=== PATIENT | male | born 1970 | race Caucasian/White ===

== ENCOUNTER 2019-10-19 14:06 | Emergency (ER) | payer OTHER ==
[~2019-10-19] VITALS: Ht 180.3 cm; Wt 117.0 kg
--- NOTE | 2019-10-19 14:25 | PHYS DOC ---
Past History Past Medical History: Other Additional Past Medical Histor: SLEEP APNEA Past Surgical History: Other Additional Past Surgical Histo: NOSE SURGERY, HAND SURGERY Alcohol Use: None General Adult EDM: Chief Complaint: ABDOMINAL PAIN HPI: HPI: Patient is a 49-year-old male who presents to the emergency department for evaluation. Patient states for the past 2 weeks he has had some waxing and waning epigastric abdominal pain which seems to be getting worse. He has not had any nausea, vomiting, diarrhea, and his pain is not alleviated or exacerbated by anything, including eating. He has not had any fevers or chills. He has been having regular bowel movements and no urinary symptoms. He denies any chest pain or shortness of breath. He also reports some mild sinus congestion but this is not a new problem for him. Review of Systems: Review of Systems: Constitutional: Denies fever or chills Eyes: Denies change in visual acuity HENT: Denies otalgia or sore throat Respiratory: Denies cough or shortness of breath Cardiovascular: Denies chest pain or edema GI: As per HPI. : Denies dysuria Musculoskeletal: Denies back pain or joint pain Integument: Denies rash Neurologic: Denies headache, focal weakness or sensory changes Endocrine: Denies polyuria or polydipsia Lymphatic: Denies swollen glands Psychiatric: Denies depression or anxiety Heart Score: Risk Factors: Risk Factors: DM, Current or recent (<one month) smoker, HTN, HLP, family history of CAD, obesity. Risk Scores: Score 0 - 3: 2.5% MACE over next 6 weeks - Discharge Home Score 4 - 6: 20.3% MACE over next 6 weeks - Admit for Clinical Observation Score 7 - 10: 72.7% MACE over next 6 weeks - Early Invasive Strategies Current Medications: Current Meds: Current Medications Medications (Trade) Dose Ordered Sig/Alpa Start Time Stop Time Status Last Admin Dose Admin Multi-Ingredient Mouthwash/Gargle (Gi Cocktail) 20 ml 1X ONCE 10/19/19 14:30 10/19/19 14:31 UNV Allergies: Allergies: Allergies Coded Allergies Type Severity Reaction Last Updated Verified No Known Drug Allergies 10/19/19 No Physical Exam: PE: PHYSICAL EXAM: CONSTITUTIONAL: Well developed, well nourished HEAD: normocephalic, atraumatic EENT: PERRL, EOMI. Conjunctivae normal color, sclerae non-icteric; moist mucous membranes. NECK: Supple, non-tender; no meningismus. LUNGS: Lungs CTA, breathing even and unlabored. Normal air movement. HEART: Regular rate and rhythm, no murmur CHEST: No deformity; non-tender ABDOMEN: The abdomen is soft, there is very mild epigastric tenderness to palpation without rebound or guarding, the right upper quadrant is nontender, Lopez sign is absent, the remainder of the abdomen is soft and non-tender, no masses or bruits. EXTREM: Normal ROM; no deformity, no calf tenderness. Normal pulses palpable in all extremities. There is no pedal edema. SKIN: No rash; no diaphoresis NEURO: Alert; normal speech and cognition; CN's grossly intact; strength grossly intact without focal deficit. BACK: No CVA TTP. Current Patient Data: Labs: Laboratory Tests Test 10/19/19 14:35 10/19/19 14:45 Urine Collection Type Unknown Urine Color Yellow Urine Clarity Clear Urine pH 8.0 Urine Specific [place] 1.020 Urine Protein Neg Urine Glucose (UA) Neg mg/dL Urine Ketones (Stick) Neg mg/dL Urine Blood Trace Urine Nitrite Neg Urine Bilirubin Neg Urine Urobilinogen Dipstick 0.2 mg/dL Urine Leukocyte Esterase Neg Urine RBC Occ /HPF Urine WBC 0 /HPF Urine Squamous Epithelial Cells Occ /LPF Urine Bacteria 0 /HPF Urine Mucus Slight /LPF White Blood Count 10.5 x10^3/uL Red Blood Count 5.47 x10^6/uL Hemoglobin 17.1 g/dL Hematocrit 49.3 % Mean Corpuscular Volume 90 fL Mean Corpuscular Hemoglobin 31 pg Mean Corpuscular Hemoglobin Concent 35 g/dL Red Cell Distribution Width 13.6 % Platelet Count 220 x10^3/uL Neutrophils (%) (Auto) 59 % Lymphocytes (%) (Auto) 29 % Monocytes (%) (Auto) 7 % Eosinophils (%) (Auto) 5 % Basophils (%) (Auto) 1 % Neutrophils # (Auto) 6.2 x10^3uL Lymphocytes # (Auto) 3.0 x10^3/uL Monocytes # (Auto) 0.8 x10^3/uL Eosinophils # (Auto) 0.5 x10^3/uL Basophils # (Auto) 0.1 x10^3/uL Sodium Level 140 mmol/L Potassium Level 3.7 mmol/L Chloride Level 105 mmol/L Carbon Dioxide Level 31 mmol/L Anion Gap 4 Blood Urea Nitrogen 14 mg/dL Creatinine 1.1 mg/dL Estimated GFR (Cockcroft-Gault) 71.4 BUN/Creatinine Ratio 13 Glucose Level 115 mg/dL Calcium Level 9.2 mg/dL Total Bilirubin 0.8 mg/dL Aspartate Amino Transf (AST/SGOT) 14 U/L Alanine Aminotransferase (ALT/SGPT) 35 U/L Alkaline Phosphatase 89 U/L Troponin I Quantitative < 0.017 ng/mL Total Protein 7.3 g/dL Albumin 3.9 g/dL Albumin/Globulin Ratio 1.1 Lipase 119 U/L Current Medications Medications (Trade) Dose Ordered Sig/Alpa Route PRN Reason Start Time Stop Time Status Last Admin Dose Admin Multi-Ingredient Mouthwash/Gargle (Gi Cocktail) 20 ml 1X ONCE PO 10/19/19 14:30 10/19/19 14:31 DC 10/19/19 14:33 Vital Signs: Vital Signs Date Time Temp Pulse Resp B/P (MAP) Pulse Ox O2 Delivery O2 Flow Rate FiO2 10/19/19 14:19 98.5 98 18 165/96 (119) 98 Room Air EKG: EKG: [] Normal sinus rhythm at a rate of 76 bpm, left axis deviation, normal intervals. There are no acute ischemic ST/T changes. Radiology/Procedures: Radiology/Procedures: [] Course & Med Decision Making: Course & Med Decision Making Pertinent Lab studies reviewed. (See chart for details) [] 3:20 PM: The patient's condition remained stable, he had relief with a GI cocktail. I discussed test results, the need for close follow-up and return precautions. Dragon Disclaimer: Dragon Disclaimer: This electronic medical record was generated, in whole or in part, using a voice recognition dictation system. Departure Departure: Impression: Primary Impression: Abdominal pain Disposition: 01 HOME/RESIDENCE PRIOR TO ADM Condition: STABLE Referrals: LUIS M MINOR MD Patient Instructions: Abdominal Pain, Gastritis, Adult, Peptic Ulcer Disease Scripts Omeprazole (OMEPRAZOLE) 20 Mg Capsule.dr 1 CAP PO DAILY for -, #30 CAP 0 Refills Prov: MICHAEL HODGES MD 10/19/19 Justification of Admission: Justification of Admission: Justification of Admission Dx: N/A MICHAEL HODGES J MD Oct 19, 2019 14:25
[2019-10-19] MEDS ORDERED: LIDO:MAALOX 1:1 20 ML SINGLE DOSE. PO ONE (14:30)
[2019-10-19 15:02] LABS: BASO # 0.1 x10^3/uL (0.0-0.2); BASO % 1 % (0-3); EOS # 0.5 x10^3/uL (0.0-0.7); EOS % 5 % (0-3); HEMATOCRIT 49.3 % (39.0-53.0); HEMOGLOBIN 17.1 g/dL (13.0-17.5); LYMPH % 29 % (24-48); MEAN CORPUSCULAR HEMOGLOBIN 31 pg (25-35); MEAN CORPUSCULAR HGB CONC 35 g/dL (31-37); MEAN CORPUSCULAR VOLUME 90 fL (79-100); MONO # 0.8 x10^3/uL (0.0-1.1); MONO % 7 % (0-9); NEUT # 6.2 x10^3uL (1.8-7.7); NEUT % 59 % (31-73); PLATELET COUNT 220 x10^3/uL (140-400); RED BLOOD COUNT 5.47 x10^6/uL (4.30-5.70); RED CELL DISTRIBUTION WIDTH 13.6 % (11.5-14.5); WHITE BLOOD COUNT 10.5 x10^3/uL (4.0-11.0)
[2019-10-19 15:08] LABS: CALCIUM 9.2 mg/dL (8.5-10.1); CREATININE 1.1 mg/dL (0.7-1.3); GFR 71.4; POTASSIUM 3.7 mmol/L (3.5-5.1)
[2019-10-19 15:12] LABS: BILIRUBIN,URINE NEG (NEG); CLARITY,URINE CLEAR; COLOR,URINE YELLOW; GLUCOSE,URINE NEG (NEG)
[2019-10-19 15:13] LABS: ALBUMIN 3.9 g/dL (3.4-5.0); ALBUMIN/GLOBULIN RATIO 1.1 (1.0-1.7); TOTAL BILIRUBIN 0.8 mg/dL (0.2-1.0); TOTAL PROTEIN 7.3 g/dL (6.4-8.2)
[2019-10-19 15:13] LABS: BACTERIA,URINE 0 /HPF (0-FEW); NITRITE,URINE NEG (NEG); RBC,URINE OCC /HPF (0-2); SQUAMOUS EPITHELIAL CELL,UR OCC /LPF; UROBILINOGEN,URINE 0.2 mg/dL (0.2 mg/dL); WBC,URINE 0 /HPF (0-4)
[2019-10-19] MEDS ORDERED: OMEP20CA16 PO (15:24)
[2019-10-19 15:29] VITALS: BP 128/85
--- NOTE | 2019-10-19 16:08 | EKG ---
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
== END 2019-10-19 15:30 | disposition home or self-care (01) ==
LOC: ER 14:06
DX: R10.13 Epigastric pain (principal)
CPT/HCPCS: 36415; 80053; 81001; 83690; 84484; 85025; 93005; 99284

== ENCOUNTER 2019-11-08 01:20 | Emergency (ER) | payer OTHER ==
[~2019-11-08] VITALS: Ht 180.3 cm; Wt 121.0 kg
[~2019-11-08 01:20] MED LIST: OMEP20CA16 PO
[2019-11-08 02:50] LABS: BASO # 0.1 x10^3/uL (0.0-0.2); BASO % 1 % (0-3); EOS # 0.8 x10^3/uL (0.0-0.7); EOS % 6 % (0-3); HEMATOCRIT 46.5 % (39.0-53.0); HEMOGLOBIN 16.1 g/dL (13.0-17.5); LYMPH # 3.6 x10^3/uL (1.0-4.8); LYMPH % 29 % (24-48); MEAN CORPUSCULAR HEMOGLOBIN 31 pg (25-35); MEAN CORPUSCULAR HGB CONC 35 g/dL (31-37); MEAN CORPUSCULAR VOLUME 90 fL (79-100); MONO % 8 % (0-9); NEUT # 7.1 x10^3uL (1.8-7.7); NEUT % 57 % (31-73); PLATELET COUNT 207 x10^3/uL (140-400); RED BLOOD COUNT 5.16 x10^6/uL (4.30-5.70); RED CELL DISTRIBUTION WIDTH 13.8 % (11.5-14.5); WHITE BLOOD COUNT 12.6 x10^3/uL (4.0-11.0)
[2019-11-08 02:56] LABS: CLARITY,URINE CLEAR; COLOR,URINE YELLOW
[2019-11-08 02:56] LABS: CALCIUM 9.5 mg/dL (8.5-10.1); CREATININE 1.1 mg/dL (0.7-1.3); GFR 71.4; POTASSIUM 3.6 mmol/L (3.5-5.1)
[2019-11-08 02:57] LABS: BACTERIA,URINE 0 /HPF (0-FEW); BILIRUBIN,URINE NEG (NEG); GLUCOSE,URINE NEG (NEG); NITRITE,URINE NEG (NEG); RBC,URINE 0 /HPF (0-2); SQUAMOUS EPITHELIAL CELL,UR OCC /LPF; UROBILINOGEN,URINE 0.2 mg/dL (0.2 mg/dL); WBC,URINE RARE /HPF (0-4)
[2019-11-08 02:59] LABS: ALBUMIN 3.9 g/dL (3.4-5.0); ALBUMIN/GLOBULIN RATIO 1.2 (1.0-1.7); TOTAL BILIRUBIN 0.8 mg/dL (0.2-1.0); TOTAL PROTEIN 7.2 g/dL (6.4-8.2)
--- NOTE | 2019-11-08 03:03 | PHYS DOC ---
Past History Past Medical History: Other Additional Past Medical Histor: SLEEP APNEA Past Surgical History: Other Additional Past Surgical Histo: NOSE SURGERY, HAND SURGERY Alcohol Use: None General Adult EDM: Chief Complaint: DIZZY/LIGHT HEADED HPI: HPI: 49-year-old male presents with dizziness and lightheadedness. The patient was driving home from work when he started to feel dizzy. The dizziness became strong enough that he needed to pull off of the road. He was near the hospital so he decided to come in to be evaluated. By the time he came inside, the s ymptoms were resolving. He has had these symptoms intermittently lately. He has been having more sinus congestion over the last couple weeks and he is noticed the symptoms seem to correlate with that. He was placed on an allergy medication but he does not know what it is called. He also takes proton pump inhibitor for GERD. He denies fever chills. Review of Systems: Review of Systems: Constitutional: Denies fever or chills Eyes: Denies change in visual acuity HENT: Denies nasal congestion or sore throat Respiratory: Denies cough or shortness of breath Cardiovascular: Denies chest pain or edema GI: Denies abdominal pain, nausea, vomiting, bloody stools or diarrhea : Denies dysuria Musculoskeletal: Denies back pain or joint pain Integument: Denies rash Neurologic: Dizziness. Denies headache, focal weakness or sensory changes Endocrine: Denies polyuria or polydipsia Lymphatic: Denies swollen glands Psychiatric: Denies depression or anxiety Heart Score: Risk Factors: Risk Factors: DM, Current or recent (<one month) smoker, HTN, HLP, family history of CAD, obesity. Risk Scores: Score 0 - 3: 2.5% MACE over next 6 weeks - Discharge Home Score 4 - 6: 20.3% MACE over next 6 weeks - Admit for Clinical Observation Score 7 - 10: 72.7% MACE over next 6 weeks - Early Invasive Strategies Allergies: Allergies: Allergies Coded Allergies Type Severity Reaction Last Updated Verified No Known Drug Allergies 10/19/19 No Physical Exam: PE: Constitutional: Well developed, well nourished, no acute distress, non-toxic appearance. [] HENT: Normocephalic, atraumatic, bilateral external ears normal, oropharynx moist, no oral exudates, nose normal. [] Eyes: PERRLA, EOMI, conjunctiva normal, no discharge. [] Neck: Normal range of motion, no tenderness, supple, no stridor. [] Cardiovascular: Heart rate regular rhythm, no murmur [] Lungs & Thorax: Bilateral breath sounds clear to auscultation [] Abdomen: Bowel sounds normal, soft, no tenderness, no masses, no pulsatile masses. [] Skin: Warm, dry, no erythema, no rash. [] Back: No tenderness, no CVA tenderness. [] Extremities: No tenderness, no cyanosis, no clubbing, ROM intact, no edema. [] Neurologic: Alert and oriented X 3, normal motor function, normal sensory function, no focal deficits noted. [] Psychologic: Affect normal, judgement normal, mood normal. [] EKG: EKG: [] Radiology/Procedures: Radiology/Procedures: [] Course & Med Decision Making: Course & Med Decision Making Pertinent Labs and Imaging studies reviewed. (See chart for details) The patient's labs are unremarkable. I discussed with him trying an antihis tamine to help with his congestion which I think is exacerbating his vertigo symptoms. He will follow-up with his family physician as needed. He is stable for discharge at this time. [] Dragon Disclaimer: Dragon Disclaimer: This electronic medical record was generated, in whole or in part, using a voice recognition dictation system. Departure Departure: Impression: Primary Impression: Positional vertigo of left ear Disposition: HOME/RESIDENCE PRIOR TO ADM Condition: STABLE Referrals: PCP,NO (PCP) Patient Instructions: Vertigo, [id number] Justification of Admission: Justification of Admission: Justification of Admission Dx: N/A MARISELA GONZALEZ DO Nov 08, 2019 03:03
[2019-11-08 03:30] VITALS: BP 133/88
--- NOTE | 2019-11-08 06:23 | EKG ---
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
== END 2019-11-08 03:30 | disposition home or self-care (01) ==
LOC: ER 01:20
DX: H81.12 Benign paroxysmal vertigo, left ear (principal)
CPT/HCPCS: 36415; 80053; 81001; 85025; 93005; 99284

== ENCOUNTER 2019-11-29 19:15 | Emergency (ER) | payer OTHER ==
[~2019-11-29] VITALS: Ht 177.8 cm; Wt 119.0 kg
[2019-11-29 19:34] VITALS: BP 147/100
[2019-11-29] MEDS ORDERED: CETI10TA74 PO (20:31)
--- NOTE | 2019-11-29 20:32 | PHYS DOC ---
Past History Past Medical History: Other Additional Past Medical Histor: vertigo; sleep apnea Past Surgical History: Other Additional Past Surgical Histo: right hand repair; nasal repair Alcohol Use: Rarely Adult General Chief Complaint Chief Complaint: HEADACHE HPI HPI Patient is a 49-year-old male who presents for headache. He does not have a headache at this present time. Patient reports having history of seasonal allergies and takes Sudafed and Ronna daily, reports being out of both medications for the past 1 month. Coincidentally, patient's dull, tension-like headaches which are intermittent and waxing and waning have been increasing in frequency for the past 1 month. He reports going outside makes them worse. Patient also reports addition of cats into his household which might be potential allergens. Patient reports having PCP in outpatient setting, has not discussed this with them yet. Given ongoing headaches, patient reported to our ER for formal evaluation Review of Systems Review of Systems Positive for classic tension-like headache, paracervical muscle tenderness Denies fever, vision changes, focal collection of headache behind 1 eye, worst headache of his life Fourteen body systems of review of systems have been reviewed. See HPI for pertinent positives and negative responses, other bush all other systems are negative, non-pertinent or non-contributory Allergies Allergies Allergies Coded Allergies Type Severity Reaction Last Updated Verified No Known Drug Allergies 10/19/19 No Physical Exam Physical Exam Constitutional: Well developed, well nourished, no acute distress, non-toxic appearance. HENT: Normocephalic, atraumatic, bilateral external ears normal, left ear shows mild scarring on left TM, moderate fluid collection behind right TM, oropharynx moist, no oral exudates, postnasal drip present, external nose normal. Eyes: PERRLA, EOMI, no discharge. Mild injection Neck: Normal range of motion, mild tenderness to bilateral paracervical muscles, supple, no stridor. Cardiovascular: Heart rate regular, sinus rhythm, no murmurs rubs or gallops Lungs & Thorax: Bilateral breath sounds clear to auscultation Abdomen: Bowel sounds normal, soft, no tenderness, no masses, no pulsatile masses. Nonsurgical abdomen, no peritoneal signs Skin: Warm, dry, no erythema, no rash. Back: No tenderness, no CVA tenderness. Extremities: No tenderness, no cyanosis, no clubbing, ROM intact, no edema. Neurologic: Alert and oriented X 3, grossly normal motor & sensory function, no focal deficits noted. Cranial nerves II through XII intact Psychologic: Affect normal, judgement normal, mood normal. Current Patient Data Vital Signs Vital Signs Date Time Temp Pulse Resp B/P (MAP) Pulse Ox O2 Delivery O2 Flow Rate FiO2 11/29/19 19:34 97.9 88 18 147/100 (116) 97 Room Air EKG EKG [] Radiology/Procedures Radiology/Procedures [] Course & Med Decision Making Course & Med Decision Making Patient seen and evaluated on ER arrival by myself Slightly hypertensive otherwise vitals stable Comprehensive history and physical exam obtained, no further laboratory or imaging work-up indicated at this time Discussed patient's headache most likely due to allergies versus tension headache from type paracervical muscles versus elevated blood pressure Discussed other possible less likely diagnoses such as subarachnoid hemorrhage, cluster headaches etc. ED course reviewed. Patient asymptomatic throughout. Discussed role of treating allergies with new prescription for Zyrtec and close PCP follow-up Discussed role of discussing this matter with PCP for consideration for PT/OMM for patient's tight cervical muscles and need to review patient's BP in outpatient setting to determine if he has hypertension and needs to be medically treated for it or not In all, patient agreeable to plan as stated Strict return precautions discussed with good understanding, all questions and concerns addressed prior to ER departure Shane Disclaimer Shane Disclaimer This electronic medical record was generated, in whole or in part, using a voice recognition dictation system. Departure Departure: Impression: Primary Impression: Headache Additional Impressions: Allergies Cervical (neck) region somatic dysfunction Disposition: HOME/RESIDENCE PRIOR TO ADM Condition: STABLE Referrals: ONIEL LILLY MD (PCP) Patient Instructions: Headache and Allergies Scripts Cetirizine Hcl (ZYRTEC) 10 Mg Tablet 1 TAB PO DAILY for Allergies, #30 TAB 2 Refills Prov: SASKIA OLIVAS DO 11/29/19 Justification of Admission: Justification of Admission: Justification of Admission Dx: N/A Problem Qualifiers SASKIA OLIVAS DO Nov 29, 2019 20:32
== END 2019-11-29 20:40 | disposition home or self-care (01) ==
LOC: ER 19:15
DX: R51 Headache (principal); M99.01 Segmental and somatic dysfunction of cervical region
CPT/HCPCS: 99282; 99283

== ENCOUNTER 2019-12-07 23:13 | Emergency (ER) | payer OTHER ==
[~2019-12-07] VITALS: Ht 177.8 cm; Wt 115.0 kg
[~2019-12-07 23:13] MED LIST changes: +CETI10TA24 PO
[2019-12-07] MEDS ORDERED: MECL-75 PO (23:53)
[2019-12-07] MEDS ORDERED: PRED20TA PO (23:53)
--- NOTE | 2019-12-07 23:53 | PHYS DOC ---
Past History Past Medical History: GERD, Other Additional Past Medical Histor: sleep apnea Past Surgical History: Other Additional Past Surgical Histo: hand, nostril Alcohol Use: None General Adult EDM: Chief Complaint: DIZZY/LIGHT HEADED HPI: HPI: Patient is a [age] year old [sex] who presents with [] Review of Systems: Review of Systems: Constitutional: Denies fever or chills Eyes: Denies change in visual acuity HENT: Denies nasal congestion or sore throat Respiratory: Denies cough or shortness of breath Cardiovascular: Denies chest pain or edema GI: Denies abdominal pain, nausea, vomiting, bloody stools or diarrhea : Denies dysuria Musculoskeletal: Denies back pain or joint pain Integument: Denies rash Neurologic: Denies headache, focal weakness or sensory changes Endocrine: Denies polyuria or polydipsia Lymphatic: Denies swollen glands Psychiatric: Denies depression or anxiety Heart Score: Risk Factors: Risk Factors: DM, Current or recent (<one month) smoker, HTN, HLP, family history of CAD, obesity. Risk Scores: Score 0 - 3: 2.5% MACE over next 6 weeks - Discharge Home Score 4 - 6: 20.3% MACE over next 6 weeks - Admit for Clinical Observation Score 7 - 10: 72.7% MACE over next 6 weeks - Early Invasive Strategies Allergies: Allergies: Allergies Coded Allergies Type Severity Reaction Last Updated Verified No Known Drug Allergies 10/19/19 No Physical Exam: PE: Constitutional: Well developed, well nourished, no acute distress, non-toxic appearance. [] HENT: Normocephalic, atraumatic, bilateral external ears normal, oropharynx moist, no oral exudates, nose normal. [] Eyes: PERRLA, EOMI, conjunctiva normal, no discharge. [] Neck: Normal range of motion, no tenderness, supple, no stridor. [] Cardiovascular:Heart rate regular rhythm, no murmur [] Lungs & Thorax: Bilateral breath sounds clear to auscultation [] Abdomen: Bowel sounds normal, soft, no tenderness, no masses, no pulsatile masses. [] Skin: Warm, dry, no erythema, no rash. [] Back: No tenderness, no CVA tenderness. [] Extremities: No tenderness, no cyanosis, no clubbing, ROM intact, no edema. [] Neurologic: Alert and oriented X 3, normal motor function, normal sensory function, no focal deficits noted. [] Psychologic: Affect normal, judgement normal, mood normal. [] Current Patient Data: Vital Signs: Vital Signs Date Time Temp Pulse Resp B/P (MAP) Pulse Ox O2 Delivery O2 Flow Rate FiO2 12/07/19 23:15 98.3 85 20 148/88 (108) 98 Room Air EKG: EKG: [] Radiology/Procedures: Radiology/Procedures: [] Course & Med Decision Making: Course & Med Decision Making Pertinent Labs and Imaging studies reviewed. (See chart for details) [] Dragon Disclaimer: [employer] Disclaimer: This electronic medical record was generated, in whole or in part, using a voice recognition dictation system. Departure Departure: Impression: Primary Impression: Dizziness Disposition: 01 HOME/RESIDENCE PRIOR TO ADM Condition: STABLE Referrals: ONIEL LILLY MD (PCP) Patient Instructions: Dizziness, [id number], Vertigo, [id number] Additional Instructions: Please call Karina Pizano MD (ENT) for further evaluation and treatment. Address: [address] [place] [address] [address], [place] [address] Scripts Prednisone (PREDNISONE) 20 Mg Tablet 2 TAB PO DAILY for Sinus pressure, #8 TAB Start this prescription tomorrow, Wednesday12/08/19 Prov: LUIS M QUEVEDO DO 12/07/19 Meclizine Hcl (MECLIZINE HCL) 25 Mg Tablet 1 TAB PO PRN TID PRN for DIZZINESS, #30 TAB Prov: LUIS M QUEVEDO DO 12/07/19 Justification of Admission: Justification of Admission: Justification of Admission Dx: N/A LUIS M QUEVEDO DO Dec 07, 2019 23:53
[2019-12-08] MEDS ORDERED: DEXAMETHASONE 4 MG TABLET PO ONE
[2019-12-08] MEDS ORDERED: MECLIZINE 12.5 MG TABLET. PO ONE
[2019-12-08 00:23] VITALS: BP 156/89
== END 2019-12-08 00:30 | disposition home or self-care (01) ==
LOC: ER 23:13
DX: R42 Dizziness and giddiness (principal); R51 Headache; K21.9 Gastro-esophageal reflux disease without esophagitis; G47.30 Sleep apnea, unspecified
CPT/HCPCS: 99283; J8540; J8597

== ENCOUNTER 2019-12-11 22:40 | Emergency (ER) | payer OTHER ==
[~2019-12-11] VITALS: Ht 177.8 cm; Wt 117.8 kg
[2019-12-11 22:40] VITALS: BP 153/85
[~2019-12-11 22:40] MED LIST changes: +MECL-75 PO; +PRED20TA PO
--- NOTE | 2019-12-11 22:49 | PHYS DOC ---
Past History Past Medical History: GERD, Other Additional Past Medical Histor: sleep apnea Past Surgical History: Other Additional Past Surgical Histo: hand, nostril Alcohol Use: None Adult General Chief Complaint Chief Complaint: EARACHE/EAR PAIN HPI HPI Patient has been seen numerous times at our facility recently for allergic type symptoms. He has been treated with guideline directed medical therapy consisting of antihistamines, intranasal corticosteroids, p.o. steroids, and meclizine. Patient reports recently seeing his PCP and just finished 1 week course of unknown antibiotics, patient denies any improvement in symptoms after this. Patient has remained afebrile but reports ongoing fullness in bilateral ears with left ear more bothersome than his right. Patient is pending ENT consultation in outpatient setting in 72 hours but reports ongoing fullness is bothering him prompting him to seek evaluation at our ER today Review of Systems Review of Systems Fourteen body systems of review of systems have been reviewed. See HPI for pertinent positives and negative responses, other bush all other systems are negative, non-pertinent or non-contributory Allergies Allergies Allergies Coded Allergies Type Severity Reaction Last Updated Verified No Known Drug Allergies 10/19/19 No Physical Exam Physical Exam Constitutional: Well developed, well nourished, no acute distress, non-toxic appearance. HENT: Normocephalic, atraumatic, bilateral external ears normal, patient has minimal fluid behind left tympanic membrane with scarring noted on left tympanic membrane without any signs of acute infection or other concerning abnormalities such as perforation or masses or exudates, oropharynx moist, no oral exudates, internal and external nose normal. No paranasal sinus tenderness Eyes: PERRLA, EOMI, conjunctiva normal, no discharge. Neck: Normal range of motion, no tenderness, supple, no stridor. Cardiovascular: Heart rate regular, sinus rhythm, no murmurs rubs or gallops Lungs & Thorax: Bilateral breath sounds clear to auscultation Abdomen: Bowel sounds normal, soft, no tenderness, no masses, no pulsatile masses. Nonsurgical abdomen, no peritoneal signs Skin: Warm, dry, no erythema, no rash. Back: No tenderness, no CVA tenderness. Extremities: No tenderness, no cyanosis, no clubbing, ROM intact, no edema. Neurologic: Alert and oriented X 3, grossly normal motor & sensory function, no focal deficits noted. Psychologic: Affect normal, judgement normal, mood normal. Current Patient Data Vital Signs Vital Signs Date Time Temp Pulse Resp B/P (MAP) Pulse Ox O2 Delivery O2 Flow Rate FiO2 12/11/19 22:40 97.9 78 18 153/85 (107) 98 Room Air EKG EKG [] Radiology/Procedures Radiology/Procedures PROCEDURE: CT MAXILLOFACIAL W/CONTRAST Study: CT maxillofacial with contrast INDICATION: Left ear pain. COMPARISON: None. TECHNIQUE: Axial CT imaging of the maxillofacial structures performed after the intravenous administration of 70 cc Omnipaque 300. Coronal and sagittal reformats were obtained. One or more of the following individualized dose reduction techniques were utilized for this examination: 1. Automated exposure control 2. Adjustment of the mA and/or kV according to patient size 3. Use of iterative reconstruction technique. FINDINGS: Bones: No mastoid or middle ear opacification on either side. The nasal bone complex is slightly flattened anteriorly but there are no findings of acuity. Collectively the facial bones are intact. No advanced odontogenic disease. Mild maxillary sinus mucosal thickening. Nearly opacified right aspect of the frontal sinus. Partially imaged degenerative changes at C4-C5. What appears to be moderate central canal stenosis at this level. Suspected mild to moderate central canal stenosis at C3-C4. Soft tissues: No fluid or debris within either external auditory canal. No apparent soft tissue inflammatory changes appreciated adjacent to the left ear. The parotid glands are unremarkable. The deep spaces of the neck are unremarkable. No apparent intracranial abnormality. Unremarkable orbital soft tissues. IMPRESSION: 1. No CT manifestations of otomastoiditis or otitis externa. 2. Nearly opacified right aspect of the frontal sinus. Mild maxillary sinus mucosal thickening. No layering fluid to suggest acute sinusitis. 3. Partially evaluated degenerative changes at C4-C5 more so than C3-C4. There appears to be moderate central canal stenosis at C4-C5 and mild/moderate at C3-C4. Electronically signed by: LARA MUÑOZ MD (12/12/2019 2:06 AM) [id number] Course & Med Decision Making Course & Med Decision Making Well-appearing ambulatory afebrile patient seen on arrival ABCs unremarkable Comprehensive history and physical exam reviewed. Offered patient CT maxillofacial to better characterize patient's symptomology This was obtained, grossly negative Discussed importance of adhering to medical care, discussed need for ongoing supportive care and to ensure he is seen by ENT in outpatient setting in 48 hours time Strict return precautions discussed at length with good understanding by patient, all questions and concerns addressed prior to ER departure Shane Disclaimer Shane Disclaimer This electronic medical record was generated, in whole or in part, using a voice recognition dictation system. Departure Departure: Impression: Primary Impression: Ear pressure Additional Impression: Environmental allergies Disposition: HOME/RESIDENCE PRIOR TO ADM Condition: STABLE Referrals: ONIEL LILLY MD (PCP) Additional Instructions: As discussed prior to ER departure, please keep your follow-up with ENT physician in 1 days time ER work-up today and review from previous recent ER visits showed no acute and/or emergent pathology You are on the correct therapy based on our comprehensive history, physical exam findings, and further diagnostic work-up Please continue to take all medications as prescribed and follow-up with specialist for further evaluation and medical intervention Strict return precautions were discussed with you prior to discharge, please call PCP, ENT physician, or re-present to ER if any of these arise and concerns you It was a pleasure to take care of you today and I wish you a speedy recovery! Justification of Admission: Justification of Admission: Justification of Admission Dx: N/A Problem Qualifiers SASKIA OLIVAS DO Dec 11, 2019 22:49
[2019-12-12] MEDS ORDERED: IOHEXOL 300 MG/ML 75 ML VIAL. IV ONE (00:15)
[2019-12-12] MEDS ORDERED: CONTRAST GIVEN. MC PRN (00:30)
--- NOTE | 2019-12-12 02:09 | RAD ---
Study: CT maxillofacial with contrast INDICATION: Left ear pain. COMPARISON: None. TECHNIQUE: Axial CT imaging of the maxillofacial structures performed after the intravenous administration of 70 cc Omnipaque 300. Coronal and sagittal reformats were obtained. One or more of the following individualized dose reduction techniques were utilized for this examination: 1. Automated exposure control 2. Adjustment of the mA and/or kV according to patient size 3. Use of iterative reconstruction technique. FINDINGS: Bones: No mastoid or middle ear opacification on either side. The nasal bone complex is slightly flattened anteriorly but there are no findings of acuity. Collectively the facial bones are intact. No advanced odontogenic disease. Mild maxillary sinus mucosal thickening. Nearly opacified right aspect of the frontal sinus. Partially imaged degenerative changes at C4-C5. What appears to be moderate central canal stenosis at this level. Suspected mild to moderate central canal stenosis at C3-C4. Soft tissues: No fluid or debris within either external auditory canal. No apparent soft tissue inflammatory changes appreciated adjacent to the left ear. The parotid glands are unremarkable. The deep spaces of the neck are unremarkable. No apparent intracranial abnormality. Unremarkable orbital soft tissues. IMPRESSION: 1. No CT manifestations of otomastoiditis or otitis externa. 2. Nearly opacified right aspect of the frontal sinus. Mild maxillary sinus mucosal thickening. No layering fluid to suggest acute sinusitis. 3. Partially evaluated degenerative changes at C4-C5 more so than C3-C4. There appears to be moderate central canal stenosis at C4-C5 and mild/moderate at C3-C4. Electronically signed by: LARA MUÑOZ MD (12/12/2019 2:06 AM) [id number]
== END 2019-12-12 02:20 | disposition home or self-care (01) ==
LOC: ER 22:40
DX: H57.89 Other specified disorders of eye and adnexa (principal); J30.2 Other seasonal allergic rhinitis; K21.9 Gastro-esophageal reflux disease without esophagitis; G47.30 Sleep apnea, unspecified
CPT/HCPCS: 70487; 99285; Q9967

== ENCOUNTER → 2020-03-01 | Outpatient (CLI) | payer OTHER ==
[~2020-03-01] MED LIST changes: -CETI10TA24 PO; +CETI10TA74 PO
== END ==
LOC: LAB 15:00
PROVIDERS: ATTEND Nurse Anesthetist, Certified Registered
DX: Z01.818 Encounter for other preprocedural examination (principal); K21.9 Gastro-esophageal reflux disease without esophagitis; Z20.828 Contact with and (suspected) exposure to other viral communicable diseases
CPT/HCPCS: U0003

== ENCOUNTER → 2020-03-05 | Day surgery (SDC) | payer OTHER ==
[~2020-03-05] MED LIST changes: +IPRATRPIUM/ALBUTEROL 0.5/2.5MG 3 ML NEBU. NEB PRN; +IV RINGERS SOLUTION,LACTATED 1,000 ML IV SCH; +LIDOCAINE 2% PF 5 ML VIAL. ONE; +MIDAZOLAM HCL PF 2 MG/2 ML VIAL. IV ONE; +ONDANSETRON PF 4 MG/2 ML VIAL. IV PRN; +PROPOFOL 10,000 MCG/ML (20ML) VIAL IV ONE
[2020-03-05 10:39] VITALS: BP 125/89
--- NOTE | 2020-03-07 17:07 | PATHOLOGY ---
[facility] Accession Number: [id number] . 01 Material submitted: . PART A: stomach - GASTRIC BIOPSY PART B: esophagus - DISTAL ESOPHAGUS. Modifiers: distal PART C: esophagus - PROXIMAL ESOPHAGUS. Modifiers: proximal . 02 Diagnosis: A. Gastric biopsies: - Chronic gastritis, mild. . B. Esophageal biopsies, distal esophagus: - Eosinophilic esophagitis. . C. Esophageal biopsies, proximal esophagus: - Eosinophilic esophagitis. LBQ 03/07/2020 1234 Local . 02 Comment: Sections of the gastric biopsy reveal segments of gastric body and antral/body transition mucosa showing congestion and mild chronic inflammation. A properly controlled immunoperoxidase stain for Helicobacter is negative for Helicobacter organisms. . Sections of the distal esophageal and proximal esophageal biopsies appear similar and reveal segments of hyperplastic squamous esophageal mucosa showing increased intraepithelial eosinophils. Areas showing greater than 20 intraepithelial eosinophils per high power field are readily demonstrated. The findings are supportive of the diagnosis of eosinophilic esophagitis. (JPM/db; 03/07/2020) . Special stain performed: Immunoperoxidase stain for Helicobacter on A1 . 02 Electronically signed: . Moshe Breaux MD, Pathologist NPI- [id number] . 01 Gross description: . A. The specimen is received in formalin, labeled "Gene Genao, gastric biopsy". Received are two segments of pale velasco soft tissue ranging in size from 0.3 to 0.5 cm in maximum dimensions. The specimen is submitted entirely in cassette A1. . B. The specimen is received in formalin, labeled "Gene Genao, distal esophagus". Received are three segments of pale velasco soft tissue ranging in size from 0.1 to 0.4 cm in maximum dimensions. The specimen is submitted entirely in cassette B1. . C. The specimen is received in formalin, labeled "Gene Genao, proximal esophagus". Received are two segments of pale velasco soft tissue ranging in size from 0.4 to 0.5 cm in maximum dimensions. The specimen is submitted entirely in cassette C1. (CAA; 03/06/2020) QAC/QAC 03/06/2020 1417 Local . 02 Pathologist provided ICD-10: K29.50, K20.0 . 02 CPT . 758506, [id number], [id number], [id number] Specimen Comment: A courtesy copy of this report has been sent to [phone], [phone] Specimen Comment: [id number] Specimen Comment: Report sent to / DR LILLY Performed at: 01 [facility] [address], [place] [id number] MD Shawn Sorto MD Phone: [phone] Performed at: 02 [facility] [address] [place], [place] [id number] MD Moshe Breaux MD Phone: [phone]
== END | disposition home or self-care (01) ==
LOC: SURG 08:18
PROVIDERS: ATTEND Emergency Medicine
DX: K21.00 Gastro-esophageal reflux disease with esophagitis, without bleeding (principal); K29.50 Unspecified chronic gastritis without bleeding; K22.8 Other specified diseases of esophagus; G47.30 Sleep apnea, unspecified; Z79.899 Other long term (current) drug therapy; Z98.890 Other specified postprocedural states
CPT/HCPCS: 43239; 88305; 88342; J2001; J2704; J7120

== ENCOUNTER 2020-06-01 18:20 | Emergency (ER) | payer OTHER ==
[~2020-06-01] VITALS: Ht 177.8 cm; Wt 119.2 kg
[2020-06-01 18:20] VITALS: BP 158/88
[~2020-06-01 18:20] MED LIST changes: -IPRATRPIUM/ALBUTEROL 0.5/2.5MG 3 ML NEBU. NEB PRN; -IV RINGERS SOLUTION,LACTATED 1,000 ML IV SCH; -LIDOCAINE 2% PF 5 ML VIAL. ONE; -MIDAZOLAM HCL PF 2 MG/2 ML VIAL. IV ONE; -ONDANSETRON PF 4 MG/2 ML VIAL. IV PRN; -PROPOFOL 10,000 MCG/ML (20ML) VIAL IV ONE
--- NOTE | 2020-06-01 18:23 | PHYS DOC ---
Past History Past Medical History: GERD, Other Additional Past Medical Histor: sleep apnea Past Surgical History: Other Additional Past Surgical Histo: hand, nostril Alcohol Use: None General Adult HPI: HPI: ".. My had a confirmed diagnosis of Covid on 05/18,,, she wanted me to come in and get checked because I have had fever, nonproductive cough, chills, aches and pains, and generalized malaise the last couple days...." Patient is a 50 year old male who presents with above hx and complaints fever, cough, chills, myalgia, arthralgia, malise. Patient requests to be checked for Covid and flu symptoms. Patient declined labs, chest x-ray, breathing treatments, or antibiotics at this time. Patient states he will follow up lab work if his symptoms becomes worse with primary care Dr. Lilly. No history recent travel. Works at [employer]. No history immunosuppression. Does not smoke. Normally healthy. Does not get flu vaccinations. Patient does not take any meds at home. Does have a history of sleep apnea which he treats with BiPAP/CPAP. Patient states he only came because his made him. Patient's previous Covid testing in 03/01/20 were negative. Review of Systems: Review of Systems: Constitutional: Complains of fever or chills Eyes: Denies change in visual acuity HENT: Complains of nasal congestion and sore throat Respiratory: Complains of a nonproductive cough. Denies shortness of breath Cardiovascular: Denies chest pain or edema GI: Denies abdominal pain, nausea, vomiting, bloody stools or diarrhea : Denies dysuria Musculoskeletal: Complains of generalized malaise, arthralgia, myalgia Integument: Denies rash Neurologic: Denies headache, focal weakness or sensory changes Endocrine: Denies polyuria or polydipsia Lymphatic: Denies swollen glands Psychiatric: Denies depression or anxiety Family History: Family History: See nursing for home meds Current Medications: Current Meds: See nursing for home meds Allergies: Allergies: Allergies Coded Allergies Type Severity Reaction Last Updated Verified No Known Drug Allergies 10/19/19 No Physical Exam: PE: Constitutional: Well developed, well nourished, no acute distress, non-toxic appearance. [] HENT: Normocephalic, atraumatic, bilateral external ears normal, oropharynx moist, mild injection of pharynx, no oral exudates, nose swollen turbinates and clear rhinorrhea Eyes: PERRLA, EOMI, conjunctiva normal, no discharge. [] Neck: Normal range of motion, no tenderness, supple, no stridor. More than 17 inches circumference. Cardiovascular:Heart rate regular rhythm, no murmur [] Lungs & Thorax: Bilateral breath sounds equal apex with few scattered wheezes on auscultation [] Abdomen: Bowel sounds normal, soft, no tenderness, no masses, no pulsatile masses. [] Skin: Warm, dry, no erythema, no rash. [] Back: No tenderness, no CVA tenderness. [] Extremities: No tenderness, no cyanosis, no clubbing, ROM intact, no edema. No cording appreciated Neurologic: Alert and oriented X 3, normal motor function, normal sensory function, no focal deficits noted. [] Psychologic: Affect anxious, judgement normal, mood normal. [] EKG: EKG: Patient declines EKG [] Radiology/Procedures: Radiology/Procedures: Patient declines chest x-ray [] Heart Score: Risk Factors: Risk Factors: DM, Current or recent (<one month) smoker, HTN, HLP, family history of CAD, obesity. Risk Scores: Score 0 - 3: 2.5% MACE over next 6 weeks - Discharge Home Score 4 - 6: 20.3% MACE over next 6 weeks - Admit for Clinical Observation Score 7 - 10: 72.7% MACE over next 6 weeks - Early Invasive Strategies Course & Med Decision Making: Course & Med Decision Making Pertinent Labs and Imaging studies reviewed. (See chart for details) Patient declined labs except rapid strep flu and Covid testing. Patient declined chest x-ray, EKG, labs, meds except for Covid flu and strep testing. Recommend patient self isolate for the next 10 days. Take Tylenol and ibuprofen for discomfort. Wear a mask anytime he is away from home. Asked must cover nose and mouth. Do frequent handwashing. Return if any concerns. Impression: 1. Viral Syndrome 2. COVID exposure- + 05/18/20 [] Shane Disclaimer: Shane Disclaimer: This electronic medical record was generated, in whole or in part, using a voice recognition dictation system. Departure Departure: Referrals: ONIEL LILLY MD (PCP) Dragon Disclaimer This chart was dictated in whole or in part using Voice Recognition software in a busy, high-work load, and often noisy Emergency Department environment. It may contain unintended and wholly unrecognized errors or omissions. Dragon Disclaimer This chart was dictated in whole or in part using Voice Recognition software in a busy, high-work load, and often noisy Emergency Department environment. It may contain unintended and wholly unrecognized errors or omissions. Dragon Disclaimer This chart was dictated in whole or in part using Voice Recognition software in a busy, high-work load, and often noisy Emergency Department environment. It may contain unintended and wholly unrecognized errors or omissions. SHAHANA SHAW MD Jun 01, 2020 18:23
== END 2020-06-01 18:44 | disposition home or self-care (01) ==
LOC: ER 18:20
DX: U07.1 COVID-19 (principal); B34.9 Viral infection, unspecified; K21.9 Gastro-esophageal reflux disease without esophagitis
CPT/HCPCS: 99283; C9803; U0003

== ENCOUNTER 2020-09-11 06:13 | Emergency (ER) | payer OTHER ==
[~2020-09-11] VITALS: Ht 177.8 cm; Wt 118.0 kg
[2020-09-11 06:25] VITALS: BP 165/101
--- NOTE | 2020-09-11 06:38 | PHYS DOC ---
Past History Past Medical History: GERD, Other Additional Past Medical Histor: sleep apnea Past Surgical History: Other Additional Past Surgical Histo: hand, nostril Alcohol Use: Occasionally Adult General HPI HPI Patient is a 50-year-old male presenting for dental pain. This is a chronic issue. He has history of poor dentition and is actually scheduled to establish care with a dentist tomorrow. States he has occasionally taken Tylenol or Aleve with improvement in symptoms but does not do this regularly. Reports pain woke him from sleep last night and is fearful he cannot make it until dentist appointment tomorrow bringing him in. There is been no fever, no gingival irritation, broken teeth, exudate or other concerning signs or symptoms of abscess or other infectious disease Review of Systems Review of Systems Fourteen body systems of review of systems have been reviewed. See HPI for pertinent positives and negative responses, other bush all other systems are negative, non-pertinent or non-contributory Allergies Allergies Allergies Coded Allergies Type Severity Reaction Last Updated Verified No Known Drug Allergies 10/19/19 No Physical Exam Physical Exam Constitutional: Well developed, well nourished, no acute distress, non-toxic appearance. HENT: Normocephalic, atraumatic, bilateral external ears normal, right tympanic membrane unremarkable, left tympanic membrane with scarring otherwise no acute disease, oropharynx moist, poor dentition with numerous chronic appearing dental caries without abscess or other signs of acute infectious process requiring antibiotics, no oral exudates, nose normal. Eyes: PERRLA, EOMI, conjunctiva normal, no discharge. Neck: Normal range of motion, no tenderness, supple, no stridor. Cardiovascular: Heart rate regular per monitor Lungs & Thorax: No respiratory distress or accessory muscle use, bilateral chest rise Abdomen: Abdomen soft, non-tender, bowel sounds present in all quadrants, no guarding or rebound, nonacute abdomen. Skin: Warm, dry, no erythema, no rash. Back: No tenderness, no CVA tenderness. Extremities: No tenderness, no cyanosis, no clubbing, ROM intact, no edema. Neurologic: Alert and oriented X 3, grossly normal motor & sensory function, no focal deficits noted. Psychologic: Affect normal, judgement normal, mood normal. EKG EKG [] Radiology/Procedures Radiology/Procedures [] Heart Score C/O Chest Pain: No HEART Score for Chest Pain: HEART Score for Chest Pain Response (Comments) Value Age >45 - < 65 1 Risk Factors 1 or 2 Risk Factors 1 Total 2 Risk Factors: Risk Factors: DM, Current or recent (<one month) smoker, HTN, HLP, family history of CAD, obesity. Risk Scores: Risk Factors: DM, Current or recent (<one month) smoker, HTN, HLP, family history of CAD, obesity. Course & Med Decision Making Course & Med Decision Making Discussed with the patient all findings such as physical examination without surgical or emergent findings. I discussed most likely diagnosis of dentalgia without acute infectious process or indication for antibiotics. I stressed need for close outpatient follow-up to review today's ER visit. Patient has scheduled dentist appointment tomorrow. Strict return precautions were also discussed at length with good understanding by patient. Patient voiced understanding and agreement with the plan. Patient knows to come back for repeat evaluation if concerning signs or symptoms present prior to outpatient follow- up. Hemodynamically stable, ambulatory and well-appearing at time of disposition. Dragon Disclaimer Dragon Disclaimer This electronic medical record was generated, in whole or in part, using a voice recognition dictation system. Departure Departure: Impression: Primary Impression: Pain due to dental caries Disposition: HOME / SELF CARE / HOMELESS Condition: STABLE Referrals: ONIEL LILLY MD (PCP) Additional Instructions: You were seen for dental pain. There does not appear to be any infection at this time. Take Ibuprofen (600-800mg) and Tylenol (500-650mg) alternating every 4-6 hours to help with inflammation and pain while you contact a dentist for further care. You should return to the ED if you develop worsening pain, fever > 101, swelling, redness, or any other new or concerning symptoms. Unfortunately, your pain is not likely to improve without seeing a dentist for further evaluation and treatment of your poor dentition and dental caries. SASKIA OLIVAS DO September 11, 2020 06:37
== END 2020-09-11 06:45 | disposition home or self-care (01) ==
LOC: ER 06:13
DX: K02.9 Dental caries, unspecified (principal); K21.9 Gastro-esophageal reflux disease without esophagitis
CPT/HCPCS: 99282; 99283

== ENCOUNTER 2020-09-22 04:54 | Emergency (ER) | payer OTHER ==
[~2020-09-22] VITALS: Ht 177.8 cm; Wt 122.5 kg
[2020-09-22 04:58] VITALS: BP 148/82
--- NOTE | 2020-09-22 05:32 | PHYS DOC ---
Past History Past Medical History: GERD, Other Additional Past Medical Histor: Sleep apnea with CPAP use Past Surgical History: Other Additional Past Surgical Histo: Right hand sx and Nasal sx Alcohol Use: Rarely Adult General Chief Complaint Chief Complaint: DENTAL PROBLEM HPI HPI Patient is a 50-year-old male who presents with dental pain, 7 out of 10, sharp in nature in his upper right molar that he states is due for root canal in 10 days but needs better pain control. States he saw his dentist who gave him 2 different kinds of pain medicines, which he took yesterday but it does not seem to be completely getting rid of the pain. Denies any fevers, neck pain, pain or trouble swallowing chest pain, shortness of breath, abdominal pain, nausea, vomiting. Patient stated he has not called his dentist to report on continued pain. States he cannot remember the name of the 2 medicines he was given for pain. States he has not taken them since yesterday afternoon. Review of Systems Review of Systems Review of systems otherwise unremarkable except noted in HPI Allergies Allergies Allergies Coded Allergies Type Severity Reaction Last Updated Verified No Known Drug Allergies 09/22/20 No Physical Exam Physical Exam Constitutional: Well developed, well nourished, no acute distress, non-toxic ap pearance. [] HENT: Normocephalic, atraumatic, poor dentition generally, upper right molar with what appears to be a dental carry Eyes: conjunctiva normal, no discharge. [] Neck: Normal range of motion, no lymphadenopathy Cardiovascular:Heart rate regular rhythm, no murmur [] Neurologic: Alert and oriented X 3, normal motor function, normal sensory function, no focal deficits noted. [] Psychologic: Affect normal, judgement normal, mood normal. [] Current Patient Data Vital Signs Vital Signs Date Time Temp Pulse Resp B/P (MAP) Pulse Ox O2 Delivery O2 Flow Rate FiO2 09/22/20 04:58 98.4 82 16 148/82 (104) 96 Room Air EKG EKG [] Radiology/Procedures Radiology/Procedures [] Heart Score C/O Chest Pain: No Risk Factors: Risk Factors: DM, Current or recent (<one month) smoker, HTN, HLP, family history of CAD, obesity. Risk Scores: Risk Factors: DM, Current or recent (<one month) smoker, HTN, HLP, family history of CAD, obesity. Course & Med Decision Making Course & Med Decision Making Patient is a 50-year-old male who presents with dental pain Vital signs not concerning. Physical exam noted above. Gave oral pain medication in the emergency department. Patient declined offer for dental block. Discussed other means of pain control home including appropriate use of Orajel. Advised to take pain medication that his dentist gave him starting today. Gave contact information for same-day emergency dentist and advised to call first thing when he gets home to set up an appointment as soon as possible for root canal versus extraction. Gave return precautions to the ED. Patient grateful, verbalized understanding and agreed with plan of discharge. [] Dragon Disclaimer Dragon Disclaimer This electronic medical record was generated, in whole or in part, using a voice recognition dictation system. Departure Departure: Impression: Primary Impression: Pain, dental Disposition: HOME / SELF CARE / HOMELESS Condition: IMPROVED Referrals: ONIEL LILLY MD (PCP) Patient Instructions: Dental Pain Additional Instructions: Please read all the attached information very carefully. Please begin using the 2 pain medications that your dentist gave you as prescribed. You can also use Orajel as described. Please call the emergency dentist at the number and website shown first thing this morning and leave a message and be prepared to have a call back in the next day or 2. Please come back to the emergency department with new or concerning symptoms as discussed. MIGUEL A TOWNSEND MD Sep 22, 2020 05:32
[2020-09-22] MEDS ORDERED: HYDROcodone/APAP 5/325MG 1 TAB TABLET PO ONE (05:45)
[2020-09-22] MEDS ORDERED: HYDROcodone/APAP 5/325MG 1 TAB TABLET ONE (05:46)
[2020-09-22] MEDS ORDERED: oxyCODONE/APAP 5/325 1 TAB TABLET PO ONE (06:00)
== END 2020-09-22 05:49 | disposition home or self-care (01) ==
LOC: ER 04:54
DX: K08.89 Other specified disorders of teeth and supporting structures (principal); K21.9 Gastro-esophageal reflux disease without esophagitis
CPT/HCPCS: 99283

== ENCOUNTER 2020-12-18 22:38 | Emergency (ER) | payer OTHER ==
--- NOTE | 2020-12-19 00:30 | PHYS DOC ---
Past History Past Medical History: GERD, Other Additional Past Medical Histor: Sleep apnea with CPAP use Past Surgical History: Other Additional Past Surgical Histo: Right hand sx and Nasal sx Alcohol Use: Rarely General Adult EDM: Chief Complaint: ABDOMINAL PAIN HPI: HPI: ".. I think it because .. I have not been on my CPAP it was recalled.. But I ve had some chest discomfort at night... and shortness of breath...".." I ve got this discomfort in pit of my stomach... and probably some reflux... Which I have had before but it did not go away I took some meds.." Patient is a 50 year old male who presents with epigastric discomfort and chest discomfort. Patient relates symptoms are somewhat due to not using his CPAP which was stopped because of recall. Patient initially seen in waiting room and then placing all bed #3. Patient denies any changes in his meds. No recent travel. No specific ill contacts. Does admit to not using his CPAP because of recall due to fibers disintegrating and being inhaled. Patient does have a past history of GERD, sleep apnea, hypertension. Patient does not smoke. Patient normally follows at [facility] with Dr. Lilly. Patient denies any previous cardiac events. Patient denies any history of pulmonary embolisms or DVT. ( Did note patient's initial EKGs had incorrect name was printed out on [facility] not [facility].) Review of Systems: Review of Systems: Constitutional: Denies fever or chills Eyes: Denies change in visual acuity HENT: Denies nasal congestion or sore throat Respiratory: history of shortness of breath when he sleeps without his CPAP Cardiovascular: Complains of epigastric chest pain. Denies edema GI: Denies abdominal pain, nausea, vomiting, bloody stools or diarrhea : Denies dysuria Musculoskeletal: Denies back pain or joint pain Integument: Denies rash Neurologic: Denies headache, focal weakness or sensory changes Endocrine: Denies polyuria or polydipsia Lymphatic: Denies swollen glands Psychiatric: Denies depression or anxiety Family History: Family History: Noncontributory to presentation Current Medications: Current Meds: See nursing for home meds Allergies: Allergies: Allergies Coded Allergies Type Severity Reaction Last Updated Verified No Known Drug Allergies 09/22/20 No Physical Exam: PE: Constitutional: Well developed, well nourished, mild distress, non-toxic appearance. [] HENT: Normocephalic, atraumatic, bilateral external ears normal, oropharynx moist, no oral exudates, nose normal. [] Eyes: PERRLA, EOMI, conjunctiva normal, no discharge. [] Neck: Normal range of motion, no tenderness, supple, no stridor. More than 17 inches circumference Cardiovascular:Heart rate regular rhythm, no murmur [] Lungs & Thorax: Bilateral breath sounds equal apex on Auscultation [] Abdomen: Bowel sounds normal, soft, mild epigastric tenderness, no masses, no pulsatile masses. Patient declined rectal at this time. Denies any tarry stools. Skin: Warm, dry, no erythema, no rash. [] Back: No tenderness, no CVA tenderness. [] Extremities: No tenderness, no cyanosis, no clubbing, ROM intact, no edema. No cording appreciated Neurologic: Alert and oriented X 3, normal motor function, normal sensory function, no focal deficits noted. [] Psychologic: Affect anxious, judgement normal, mood normal. [] EKG: EKG: My interpretation of EKG #1 shows a supraventricular ventricular arrhythmia with PVCs. The considerable artifact. Loss of baseline. Time of EKG is 2305 hrs. EKG is listed under [facility], EKG #2 is 2314 hrs. Does have a stable baseline on this EKG does show with leftward axis. Sinus rhythm at 72 bpm. Would be considered a normal EKG. Time of this EKG [] is 2314 hrs. Interpretation EKG #3 shows a sinus rhythm at 65 bpm. Leftward axis. No acute morphology changes between EKG #2 and #3. Time of this EKG is 0506 hrs. Radiology/Procedures: Radiology/Procedures: [][address] [address] IMAGING REPORT Signed PATIENT: GENE GENAO ACCOUNT: [id number] : 1970 LOCATION: ER AGE: 50 SEX: M EXAM STATUS: REG ER ORD. PHYSICIAN: SHAHANA SHAW MD REASON: dyspnea and chest pain PROCEDURE: PORTABLE CHEST 1V EXAM: XR CHEST 1V 12/19/2020 12:52 AM CLINICAL INDICATION: Dyspnea and chest pain COMPARISON: None TECHNIQUE: PA upright view of the chest FINDINGS: The heart and mediastinum are normal. Lungs are well-expanded and clear. No consolidation, pleural effusion, or pneumothorax. Pulmonary vascularity is normal. The thoracic skeleton is intact. IMPRESSION: Normal chest radiograph. Electronically signed by: Tara Collins MD (12/19/2020 3:00 AM) [id number] DICTATED AND SIGNED BY: TARA COLLINS MD DATE: 12/19/20 0259 CC: SHAHANA SHAW MD; ONIEL LILLY MD ~MTH0 0 Heart Score: C/O Chest Pain: Yes HEART Score for Chest Pain: HEART Score for Chest Pain Response (Comments) Value History Moderately Suspicious 1 ECG Nonspecific Repolarizatio 1 Age >45 - < 65 1 Risk Factors 1 or 2 Risk Factors 1 Troponin < Normal Limit 0 Total 4 Risk Factors: Risk Factors: DM, Current or recent (<one month) smoker, HTN, HLP, family history of CAD, obesity. Risk Scores: Score 0 - 3: 2.5% MACE over next 6 weeks - Discharge Home Score 4 - 6: 20.3% MACE over next 6 weeks - Admit for Clinical Observation Score 7 - 10: 72.7% MACE over next 6 weeks - Early Invasive Strategies Course & Med Decision Making: Course & Med Decision Making Pertinent Labs and Imaging studies reviewed. (See chart for details) Patient observed in ED for some time. With complete resolution of his symptoms. Patient take a daily aspirin. Patient take Pepcid twice a day. Patient follow-up with his primary. Patient consider outpatient stress testing. Recommend patient resume his CPAP as soon as it is available. Reviewed risk of sleep apnea equal to hypertension or smoking. Patient appears to be lower risk for discharge home. Suspect abnormal findings on EKG is positioning and a wavering baseline. EKGs to within 3 showed no acute interval changes. Patient had 2x negative troponin readings. There does not appear to be at point of GERD. Return if any concerns. Must follow-up. Consider outpatient stress testing. Impression: 1. Chest pain 2. GERD 3. Sleep apnea [] Dragon Disclaimer: Dragdeep Disclaimer: This electronic medical record was generated, in whole or in part, using a voice recognition dictation system. Departure Departure: Referrals: ONIEL LILLY MD (PCP) Scripts Aspirin (Children's Aspirin) 81 Mg Tab.chew 81 MG PO DAILY for cp for 30 Days, #30 TAB.CHEW Prov: SHAHANA SHAW MD 12/19/20 Famotidine (PEPCID) 20 Mg Tablet 20 MG PO BID for GERD for 30 Days, #60 TAB Prov: SHAHANA SHWA MD 12/19/20 Dragon Disclaimer This chart was dictated in whole or in part using Voice Recognition software in a busy, high-work load, and often noisy Emergency Department environment. It may contain unintended and wholly unrecognized errors or omissions. SHAHANA SHAW MD Dec 19, 2020 00:30
--- NOTE | 2020-12-19 00:47 | EKG ---
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
[2020-12-19] MEDS: IV RINGERS SOLUTION,LACTATED 1,000 ML IV SCH (00:55)
[2020-12-19 01:10] LABS: BASO # 0.1 x10^3/uL (0.0-0.2); BASO % 1 % (0-3); EOS # 0.6 x10^3/uL (0.0-0.7); EOS % 5 % (0-3); HEMATOCRIT 45.7 % (39.0-53.0); HEMOGLOBIN 15.9 g/dL (13.0-17.5); LYMPH # 3.4 x10^3/uL (1.0-4.8); LYMPH % 31 % (24-48); MEAN CORPUSCULAR HEMOGLOBIN 32 pg (25-35); MEAN CORPUSCULAR HGB CONC 35 g/dL (31-37); MEAN CORPUSCULAR VOLUME 91 fL (79-100); MONO % 9 % (0-9); NEUT # 5.9 x10^3uL (1.8-7.7); NEUT % 54 % (31-73); PLATELET COUNT 211 x10^3/uL (140-400); RED BLOOD COUNT 5.03 x10^6/uL (4.30-5.70); RED CELL DISTRIBUTION WIDTH 13.5 % (11.5-14.5); WHITE BLOOD COUNT 10.9 x10^3/uL (4.0-11.0)
[2020-12-19 01:28] LABS: CALCIUM 9.1 mg/dL (8.5-10.1); CREATININE 0.8 mg/dL (0.7-1.3); GFR 102.7
[2020-12-19 01:40] LABS: ALBUMIN 3.7 g/dL (3.4-5.0); DIRECT BILIRUBIN 0.1 mg/dL (0.0-0.2); MAGNESIUM 2.4 mg/dL (1.8-2.4); TOTAL BILIRUBIN 0.6 mg/dL (0.2-1.0); TOTAL PROTEIN 6.8 g/dL (6.4-8.2)
--- NOTE | 2020-12-19 03:02 | RAD ---
EXAM: XR CHEST 1V 12/19/2020 12:52 AM CLINICAL INDICATION: Dyspnea and chest pain COMPARISON: None TECHNIQUE: PA upright view of the chest FINDINGS: The heart and mediastinum are normal. Lungs are well-expanded and clear. No consolidatio n, pleural effusion, or pneumothorax. Pulmonary vascularity is normal. The thoracic skeleton is int act. IMPRESSION: Normal chest radiograph. Electronically signed by: Tara Collins MD (12/19/2020 3:00 AM) [id number]
--- NOTE | 2020-12-19 05:16 | EKG ---
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
[2020-12-19 05:39] LABS: BACTERIA,URINE 0 /HPF (0-FEW); BILIRUBIN,URINE NEG (NEG); CLARITY,URINE CLEAR; COLOR,URINE YELLOW; GLUCOSE,URINE NEG (NEG); NITRITE,URINE NEG (NEG); RBC,URINE 0 /HPF (0-2); SQUAMOUS EPITHELIAL CELL,UR OCC /LPF; UROBILINOGEN,URINE 0.2 mg/dL (0.2 mg/dL); WBC,URINE RARE /HPF (0-4)
[2020-12-19 05:40] LABS: BARBITURATES NEG (NEG); BENZODIAZEPINES NEG (NEG); CANNABINOIDS NEG (NEG); COCAINE NEG (NEG); METHADONE NEG (NEG); OPIATES NEG (NEG); PHENCYCLIDINE NEG (NEG)
[2020-12-19 05:42] LABS: AMPHETAMINE/METHAMPHETAMINE NEG (NEG)
[2020-12-19] MEDS ORDERED: FAMO-63 PO (05:44)
[2020-12-19] MEDS ORDERED: ASPI81TA59 PO (05:44)
[2020-12-19] MEDS: FAMOTIDINE 20 MG/2 ML VIAL IVP ONE (06:08)
== END 2020-12-19 06:20 | disposition home or self-care (01) ==
LOC: ER 22:38
DX: R10.9 Unspecified abdominal pain (principal); R07.9 Chest pain, unspecified; K21.9 Gastro-esophageal reflux disease without esophagitis
CPT/HCPCS: 36415; 71045; 80048; 80076; 80307; 81001; 82550; 83690; 83735; 83880; 84443; 84484; 85025; 85379; 85610; 93005; 96361; 96374; 99285; J3490; J7120

== ENCOUNTER 2021-07-03 22:12 | Emergency (ER) | payer OTHER ==
[~2021-07-03] VITALS: Ht 177.8 cm; Wt 121.0 kg
[~2021-07-03 22:12] MED LIST changes: +ASPI81TA59 PO; +FAMO-63 PO
--- NOTE | 2021-07-03 22:22 | PHYS DOC ---
Past History Past Medical History: Anxiety, Arthritis, GERD, Other Additional Past Medical Histor: Sleep apnea with CPAP use Past Surgical History: Other Additional Past Surgical Histo: Right hand sx and Nasal sx Alcohol Use: None General Adult HPI: HPI: ". I ve been having some chest discomfort.. so I just wanted to get checked out..." Patient is a 51 year old male who presents with above hx and complaints of central chest problem for the past couple weeks. Patient localizes discomfort sternal area. Patient pain is reproducible with movement cough palpation. No history of trauma. Patient also has had some swollen ankles at the end of the day. No history of DVTs. No history of prior MIs. No history of travel. No history of contact. Patient does have a history of hypertension. Does have a history of sleep apnea with CPAP use patient normally follows with Dr. Lilly Review of Systems: Review of Systems: Constitutional: Denies fever or chills Eyes: Denies change in visual acuity HENT: Denies nasal congestion or sore throat Respiratory: Denies cough or shortness of breath Cardiovascular: Complains of central chest pain / discomfort and some ankle edema GI: Denies abdominal pain, nausea, vomiting, bloody stools or diarrhea : Denies dysuria Musculoskeletal: Denies back pain or joint pain Integument: Denies rash Neurologic: Denies headache, focal weakness or sensory changes Endocrine: Denies polyuria or polydipsia Lymphatic: Denies swollen glands Psychiatric: Denies depression or anxiety Family History: Family History: Noncontributory to presentation Current Medications: Current Meds: Non-contributory Allergies: Allergies: Allergies Coded Allergies Type Severity Reaction Last Updated Verified No Known Drug Allergies 09/22/20 No Physical Exam: PE: Constitutional: Well developed, well nourished, mild distress, non-toxic ap pearance. [] HENT: Normocephalic, atraumatic, bilateral external ears normal, oropharynx moist, no oral exudates, nose normal. [] Eyes: PERRLA, EOMI, conjunctiva normal, no discharge. [] Neck: Normal range of motion, no tenderness, supple, no stridor. [] Cardiovascular:Heart rate regular rhythm, no murmur [] Some anterior chest wall tenderness. Lungs & Thorax: Bilateral breath sounds equal apexes auscultation [] Abdomen: Bowel sounds normal, soft, epigastric tenderness, no masses, no pulsatile masses. [] Skin: Warm, dry, no erythema, no rash. [] Back: No tenderness, no CVA tenderness. [] Extremities: No tenderness, no cyanosis, no clubbing, ROM intact, trace ankle edema. [] No cording. Neurologic: Alert and oriented X 3, normal motor function, normal sensory function, no focal deficits noted. [] Psychologic: Affect anxious, judgement normal, mood normal. [] EKG: EKG: My interpretation EKG shows sinus rhythm at 78 bpm. Does have leftward axis. No findings acute STEMI of contralateral changes. Time of EKG is 22 36 hours [] My interpretation second EKG shows sinus rhythm at 75 bpm. No acute morphology. Leftward axis. No acute interval change from prior EKG. Time of EKG is 142 hours Radiology/Procedures: Radiology/Procedures: [address] [place] [id number] IMAGING REPORT Signed PATIENT: LIZETH RIVAS ACCOUNT: [id number] : 1970 LOCATION: ER AGE: 51 SEX: M EXAM STATUS: REG ER ORD. PHYSICIAN: SHAHANA SHAW MD REASON: dyspnea PROCEDURE: PORTABLE CHEST 1V AP chest x-ray HISTORY: Dyspnea. COMPARISON: Chest x-ray December 19, 2020 FINDINGS: Heart size normal. Mediastinal silhouette is normal. No pneumothorax, pulmonary opacities or pleural effusions. The bones are normal. IMPRESSION: No acute process. Electronically signed by: Jaky Street MD (07/03/2021 11:38 PM) [facility] DICTATED AND SIGNED BY: JAKY STREET MD DATE: 07/03/21 1703 CC: SHAHANA SHAW MD; ONIEL LILLY MD ~ [][address] [address] IMAGING REPORT Signed PATIENT: LIZETH RIVAS ACCOUNT: [id number] : 1970 LOCATION: ER AGE: 51 SEX: M EXAM STATUS: REG ER ORD. PHYSICIAN: SHAHANA SHAW MD REASON: dyspnea PROCEDURE: PORTABLE CHEST 1V AP chest x-ray HISTORY: Dyspnea. COMPARISON: Chest x-ray December 19, 2020 FINDINGS: Heart size normal. Mediastinal silhouette is normal. No pneumothorax, pulmonary opacities or pleural effusions. The bones are normal. IMPRESSION: No acute process. Electronically signed by: Jaky Street MD (07/03/2021 11:38 PM) [facility] DICTATED AND SIGNED BY: JAKY STREET MD DATE: 07/03/212336 CC: SHAHANA SHAW MD; ONIEL LILLY MD ~ Heart Score: C/O Chest Pain: N/A HEART Score for Chest Pain: HEART Score for Chest Pain Response (Comments) Value History Slighlty/Non-Suspicious 0 ECG Normal 0 Age >45 - < 65 1 Risk Factors 1 or 2 Risk Factors 1 Troponin < Normal Limit 0 Total 2 Risk Factors: Risk Factors: DM, Current or recent (<one month) smoker, HTN, HLP, family history of CAD, obesity. Risk Scores: Score 0 - 3: 2.5% MACE over next 6 weeks - Discharge Home Score 4 - 6: 20.3% MACE over next 6 weeks - Admit for Clinical Observation Score 7 - 10: 72.7% MACE over next 6 weeks - Early Invasive Strategies Course & Med Decision Making: Course & Med Decision Making Pertinent Labs and Imaging studies reviewed. (See chart for details) Patient take Tylenol and ibuprofen for discomfort. Patient take a daily baby aspirin. Patient follow-up primary care. Patient follow-up with cardiology. Consider outpatient stress testing. Return if any concerns. Impression: 1. Chest discomfort 2, Hx. GERD 3. Hx. Sleep apnea- on Bipap [] Dragon Disclaimer: Dragdeep Disclaimer: This electronic medical record was generated, in whole or in part, using a voice recognition dictation system. Departure Departure: Referrals: ONIEL LILLY MD (PCP) Shane Disclaimer This chart was dictated in whole or in part using Voice Recognition software in a busy, high-work load, and often noisy Emergency Department environment. It may contain unintended and wholly unrecognized errors or omissions. SHAHANA SHAW MD Jul 03, 2021 22:22
[2021-07-03] MEDS: IV RINGERS SOLUTION,LACTATED 1,000 ML IV SCH (23:25)
[2021-07-03 23:31] LABS: BASO # 0.1 x10^3/uL (0.0-0.2); BASO % 1 % (0-3); EOS # 0.5 x10^3/uL (0.0-0.7); EOS % 5 % (0-3); HEMOGLOBIN 15.6 g/dL (13.0-17.5); LYMPH # 2.4 x10^3/uL (1.0-4.8); LYMPH % 23 % (24-48); MEAN CORPUSCULAR HEMOGLOBIN 31 pg (25-35); MEAN CORPUSCULAR HGB CONC 35 g/dL (31-37); MEAN CORPUSCULAR VOLUME 90 fL (79-100); MONO # 0.8 x10^3/uL (0.0-1.1); MONO % 7 % (0-9); NEUT # 6.8 x10^3uL (1.8-7.7); NEUT % 64 % (31-73); PLATELET COUNT 206 x10^3/uL (140-400); RED BLOOD COUNT 5.01 x10^6/uL (4.30-5.70); RED CELL DISTRIBUTION WIDTH 13.9 % (11.5-14.5); WHITE BLOOD COUNT 10.6 x10^3/uL (4.0-11.0)
[2021-07-03 23:41] LABS: CALCIUM 8.9 mg/dL (8.5-10.1); CREATININE 0.7 mg/dL (0.7-1.3); GFR 119.4
--- NOTE | 2021-07-03 23:41 | RAD ---
AP chest x-ray HISTORY: Dyspnea. COMPARISON: Chest x-ray December 19, 2020 FINDINGS: Heart size normal. Mediastinal silhouette is normal. No pneumothorax, pulmonary opacities o r pleural effusions. The bones are normal. IMPRESSION: No acute process. Electronically signed by: Lowell Street MD (07/03/2021 11:38 PM) [facility]
[2021-07-03 23:53] LABS: ALBUMIN 3.9 g/dL (3.4-5.0); DIRECT BILIRUBIN 0.2 mg/dL (0.0-0.2); MAGNESIUM 2.3 mg/dL (1.8-2.4); TOTAL BILIRUBIN 0.7 mg/dL (0.2-1.0); TOTAL PROTEIN 6.5 g/dL (6.4-8.2)
[2021-07-04 00:41] LABS: BARBITURATES NEG (NEG); BENZODIAZEPINES NEG (NEG); CANNABINOIDS NEG (NEG); COCAINE NEG (NEG); METHADONE NEG (NEG); OPIATES NEG (NEG); PHENCYCLIDINE NEG (NEG)
[2021-07-04 00:42] LABS: BACTERIA,URINE 0 /HPF (0-FEW); CLARITY,URINE CLEAR; COLOR,URINE YELLOW; GLUCOSE,URINE NEG (NEG); NITRITE,URINE NEG (NEG); RBC,URINE 0 /HPF (0-2); UROBILINOGEN,URINE 0.2 mg/dL (0.2 mg/dL); WBC,URINE 0 /HPF (0-4)
[2021-07-04 00:43] LABS: AMPHETAMINE/METHAMPHETAMINE NEG (NEG)
--- NOTE | 2021-07-04 00:51 | RAD ---
AP upright supine abdomen x-rays HISTORY: Epigastric abdominal pain. FINDINGS: Lung bases normal. No pneumoperitoneum. There is a mild volume of stool within the right-si ded large bowel. Bowel gas within the stomach and large and small bowel. No dilated bowel loops or ab normal air-fluid levels to suggest ileus or obstruction. Bones and soft tissues are normal. IMPRESSION: No bowel obstruction evident. Electronically signed by: Lowell Street MD (07/04/2021 12:49 AM) [facility]
--- NOTE | 2021-07-04 01:54 | EKG ---
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
--- NOTE | 2021-07-04 01:56 | EKG ---
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
[2021-07-04 02:15] VITALS: BP 130/78
== END 2021-07-04 02:31 | disposition home or self-care (01) ==
LOC: ER 22:12
DX: R07.2 Precordial pain (principal); K21.9 Gastro-esophageal reflux disease without esophagitis; G47.30 Sleep apnea, unspecified; M19.90 Unspecified osteoarthritis, unspecified site; F41.9 Anxiety disorder, unspecified; I10 Essential (primary) hypertension
CPT/HCPCS: 36415; 71045; 74019; 80048; 80076; 80307; 81001; 82550; 83690; 83735; 83880; 84443; 84484; 85025; 85379; 85610; 85730; 93005; 96360; 96361; 99285; J7120

== ENCOUNTER → 2021-08-21 | Outpatient (CLI) | payer OTHER ==
--- NOTE | 2021-08-21 10:14 | RAD ---
Complete Abdominal Ultrasound: Clinical History: Reason: RUQ TENDERNESS, EPIGASTRIC PAIN, HEARTBURN / Spl. Instructions: / History: Technique: Sonographic examination of the abdomen was performed and multiple static images were obta ined. Findings: Liver: The majority is visualized and appears homogeneous. There is increased echogenicity attenuatio n of sound which further limits SENSITIVITY FOR POSSIBLE SUBTLE LIVER LESION. Common bile duct: Appears normal measures 3 mm in diameter. Gallbladder: appears normal. Portal vein: Appears normal. Pancreas: is not well visualized due to overlying bowel gas. Right kidney: appears normal and measures 13 cm in length. Left kidney appears normal and measures 13 cm in length. There is a dromedary hump. Spleen: Not enlarged. Impression: Fatty infiltration of the liver. No evidence of gallbladder disease. Electronically signed by: Cheikh Marquis III, MD (08/21/2021 10:12 AM) [facility]
== END ==
LOC: US 08:02
PROVIDERS: ATTEND Nurse Practitioner Adult Health
DX: K76.0 Fatty (change of) liver, not elsewhere classified (principal); R12 Heartburn
CPT/HCPCS: 76700